=== PATIENT | male | born 1950 | race Caucasian/White ===

== ENCOUNTER 2017-11-12 16:48 | Emergency (ER) | payer OTHER, MEDICARE ==
[2017-11-12] MEDS ORDERED: PROPARACAINE/FLUORESCEIN SOD 5 ML OPHT.BTL ONE (17:24)
--- NOTE | 2017-11-12 17:35 | EDPHY ---
H & P Smoking Status: Never smoked Time Seen by Provider: 11/12/17 17:00 HPI/ROS: Chief complaint: Right eye injury History of present illness: This is a 67-year-old male who presents to the emergency department for a right eye injury. Patient was at home gardening when he struck his right eye against the tip of a [employer] plant. There has been minimal discomfort. However he has noted his eye turning bloody which prompted him to come to the emergency room. Again minimal discomfort. No visual changes. He wears glasses but not contacts and has never had eye surgery. He is not sure if his tetanus is up-to-date. (Toro Camilo) Physical Exam: General: Alert, nontoxic ENT: Very large subconjunctival hemorrhage involving the lateral aspect of the right eye. There is a small hematoma the lateral sclera as well she appears to be where he actually punctured himself. Cornea itself is unremarkable. There is no hyphema. PERRLA. EOM intact. Red reflex present. Skin: Periorbital tissue unremarkable (Toro Camilo) Constitutional: Initial Vital Signs Temperature (C) 36.5 C 11/12/17 16:56 Heart Rate 74 11/12/17 16:56 Respiratory Rate 17 11/12/17 16:56 Blood Pressure 94/80 L 11/12/17 16:56 O2 Sat (%) 96 11/12/17 16:56 O2 Delivery Mode Room Air Allergies/Adverse Reactions: Penicillins Allergy (Unknown, Verified 11/12/17 16:54) Home Medications: Medication Instructions Recorded Bupropion HBr 11/12/17 Invokana 11/12/17 Januvia 25 MG (*) 11/12/17 Metformin 1000 mg 11/12/17 Polymyxin B Sulfate/Tmp [Polytrim 1 drops EACHEYE Q4 7 Days #1 bottle 11/12/17 Opht Drops (*)] SIMVASTATIN 11/12/17 MDM/Departure - MDM Procedures: Slit-lamp examination was performed with floor seen staining. There is a slight corneal abrasion to the lateral aspect of the right cornea at the 9 o' clock position. Significant subconjunctival hemorrhage noted. No foreign body. No [place] sign. No cell and flare. Visual acuities checked, 20/70 right eye as well as 20/70 left eye, patient does not have his glasses, states his vision is normal (TonToro) ED Course/Re-evaluation: Patient seen under the supervision of my secondary supervising physician Dr. Doreen Coe. Patient presents for a right eye injury. He appears to have a subconjunctival hemorrhage with small hematoma as well as a corneal abrasion. Vision is intact. No evidence of globe rupture. I do not appreciate retained foreign body. I have consulted with Ophthalmology, Dr. Oliva. He agrees with plan to discharge patient home on eye antibiotics and have him follow up in clinic. I have discussed the plan with the patient who voiced understanding and agreement with plan. Return precautions given. (Toro Camilo) The patient was evaluated and managed by the physician clinical nursing assistant. I have reviewed this chart and I agree with the findings and plan of care as documented , as indicated by my signature. I am the secondary supervising physician. ( Doreen Coe) Differential Diagnosis: Included but not limited to subconjunctival hemorrhage, corneal abrasion, corneal ulceration, foreign body, globe rupture (Toro Camilo) - Depart Disposition: Home, Routine, Self-Care Clinical Impression: Subconjunctival bleed Condition: Good Instructions: Subconjunctival Hemorrhage (ED) Additional Instructions: Follow-up with an green marketer on Wednesday for recheck Use eye antibiotics as prescribed Avoid ibuprofen and Aleve, use Tylenol for pain Please call your primary care doctor on Wednesday and verify when your last tetanus was given, if it was not within the last 10 years please have it updated by your primary care doctor or you can go to local pharmacy such as [facility] and request one If symptoms worsen or new symptoms develop return to the emergency room for recheck Prescriptions: Polymyxin B Sulfate/Tmp [Polytrim Opht Drops (*)] 1 drops EACHEYE Q4 7 Days #1 bottle Referrals: BENI ALM [Primary Care Provider] - As per Instructions Valentín Oliva MD [Medical Doctor] - As per Instructions
[2017-11-12 17:51] VITALS: BP 127/66
== END 2017-11-12 18:20 | disposition home or self-care (01) ==
DX: H11.31 Conjunctival hemorrhage, right eye (principal); W60.XXXA Contact with nonvenomous plant thorns and spines and sharp leaves, initial encounter; Y92.009 Unspecified place in unspecified non-institutional (private) residence as the place of occurrence of the external cause; Y99.8 Other external cause status; Y93.H2 Activity, gardening and landscaping

== ENCOUNTER → 2018-09-21 | Outpatient (CLI) | payer OTHER, MEDICARE | LOC: BMCIMAGING 08:48 | PROVIDERS: ATTEND Family Medicine | DX: M54.9 Dorsalgia, unspecified (principal) ==

== ENCOUNTER → 2018-09-28 | Outpatient (CLI) | payer OTHER, MEDICARE | LOC: FIMAGING 14:06 | PROVIDERS: ATTEND Physician Assistant Medical | DX: K59.00 Constipation, unspecified (principal); N32.9 Bladder disorder, unspecified ==